=== PATIENT | female | born 1930 | race Two or more races ===

== ENCOUNTER 2018-09-17 05:27 | Inpatient (IN) | payer OTHER ==
[~2018-09-17] VITALS: Ht 152.4 cm; Wt 73.2 kg
[2018-09-17] VITALS (8 sets, daily range): BP systolic 131–153; BP diastolic 61–71; PULSE 68–83; RESP 18
[~2018-09-17 05:27] MED LIST: CALC-143 PO; CHOL2400 MC; GABA300C16 PO; GLIP5TAB13 PO; HYDR12.53 PO; LISI10TA2 PO; MECL25TA2 PO; METF-849 PO; MTF1000T PO; SIMV5TAB14 PO
--- NOTE | 2018-09-17 11:19 | HP ---
Date/Time of Note Date/Time of Note DATE: 09/17/18 TIME: 11:12 Assessment/Plan VTE Prophylaxis SCD applied (from Nsg): Yes Pharmacological prophylaxis: NA/contraindicated Pharm contraindication: low risk/ambulating Lines/Catheters IV Catheter Type (from Nrsg): Saline Lock Assessment/Plan Assessment/Plan 88 yo woman with HTN and NIDDM presents with cough. #Cough - Will repeat 2-vew CXR - Cont empiric CTX+azithro - Patient reports she got the flu vaccine. - Watch overnight, likely D/C in AM. #HTN - Patient reports noncompliance with home antihypertensives. - Currently normotensive, will hold. #NIDDM - Insulin sliding scale. DVT: SCDs GI: None HPI/ROS Admit Date/Time Admit Date/Time Sep 17, 2018 at 09:20 Hx of Present Illness Ms. Gauthier is an 88 yo woman who presents with fever and cough. She reports 2 days of cough productive of white sputum. Subjective fever at home, but didn't measure it. Also mild headache on and off. She has HTN and NIDDM. She occasionally takes her blood pressure at home and only takes anti- hypertensives if it is high, which is rarely. She presented to the ED at [facility], vitals normal, breathing comfortably on room air. CXR showed a little retrocardiac opacity. WBC 10.7, otherwise labs normal. Lactate 2.2. She was started on ceftriaxone and azithromycin and admitted here with "severe sepsis". ROS Full 12 point review of systems, negative except per HPI. PMH/Family/Social Past Medical History NIDDM HTN Medications Current Medications Gabapentin (Neurontin) 300 mg TID PO ; Start 09/17/18 at 13:00 Meclizine HCl (Antivert) 25 mg TID PO ; Start 09/17/18 at 13:00 Miscellaneous Information 5 mg QHS PO ; Start 09/17/18 at 21:00; Status UNV Coded Allergies: No Known Allergy (Unverified , 05/31/16) Past Surgical History Hysterectomy Social History Lives at home with daughter. Alcohol Use: none Smoking Status: Never smoker Drug Use: none Exam/Review of Systems Vital Signs Vitals Vital Signs Date Temp Pulse Resp B/P (MAP) Pulse Ox O2 O2 Flow FiO2 Time Delivery Rate 09/17/18 Nasal 2.0 10:56 Cannula 09/17/18 78 09:34 09/17/18 98.5 18 143/71 98 09:22 (95) Exam Exam Gen: Frail appearing elderly woman in no acute distress. Eyes: PERRL, no icterus HEENT: Moist mucous membranes clear oropharynx Neck: No lymphadenopathy Card: Regular rate and rhythm, no murmurs Pulm: Clear to auscultation bilaterally Abd: Soft, nontender, nondistended. Ext: No cyanosis/clubbing/edema Skin: warm, dry, well perfused. TOSIN JOYNER MD Sep 17, 2018 11:19
[2018-09-17] MEDS ORDERED: ACETAMINOPHEN 325 MG TAB PO PRN (11:30)
[2018-09-17] MEDS ORDERED: NACL 0.9% 3 ML SYG IV SCH (11:30)
[2018-09-17] MEDS ORDERED: ONDANSETRON 4 MG INJ IV PRN (11:30)
[2018-09-17] MEDS: AZITHROMYCIN 250 MG TAB PO SCH (11:49)
[2018-09-17] MEDS: CEFTRIAXONE 1 GM/50 ML (PMX) 50 ML IVPB SCH (11:49)
[2018-09-17] MEDS: INSULIN ASPART [NOVOLOG] 3 ML PEN SC SCH ×3 (12:03→20:48)
[2018-09-17] MEDS: GABAPENTIN 300 MG CAP PO SCH ×2 (12:44→20:28)
[2018-09-17] MEDS: MECLIZINE 25 MG TAB PO SCH ×2 (12:44→20:28)
[2018-09-17] MEDS ORDERED: POTASSIUM CHLORIDE 20 MEQ POWDER FOR ORAL SOLN PO ONE (15:30)
[2018-09-17] MEDS ORDERED: MAGNESIUM SULFATE 2 GM/50 ML 50 ML IVPB ONE (15:30)
[2018-09-17] MEDS ORDERED: NON-FORMULARY/PATIENT OWN MED (Simvastatin* 5 MG) PO SCH (21:00)
[2018-09-17] MEDS ORDERED: ATORVASTATIN 10 MG TAB PO SCH (21:00)
[2018-09-18] VITALS (8 sets, daily range): BP systolic 109–155; BP diastolic 52–78; PULSE 65–91; RESP 18
[2018-09-18] MEDS ORDERED: ACCU-CHEK XX SCH (02:00)
[2018-09-18] MEDS: INSULIN ASPART [NOVOLOG] 3 ML PEN SC SCH ×2 (08:24→11:15)
[2018-09-18] MEDS: AZITHROMYCIN 250 MG TAB PO SCH (08:25)
[2018-09-18] MEDS: MECLIZINE 25 MG TAB PO SCH ×2 (08:25→13:00)
[2018-09-18] MEDS: GABAPENTIN 300 MG CAP PO SCH ×2 (08:25→13:00)
[2018-09-18] MEDS: CEFTRIAXONE 1 GM/50 ML (PMX) 50 ML IVPB SCH (11:12)
[2018-09-18] MEDS ORDERED: GUAI473L22 PO (11:20)
[2018-09-18] MEDS ORDERED: AZIT250T13 PO (11:20)
--- NOTE | 2018-09-18 11:21 | PDOCDIS ---
Discharge Instructions DIAGNOSIS Discharge Diagnosis Atypical pneumonia CONDITION [id number] Patient Condition: [id number] Good HOME CARE INSTRUCTIONS: [id number] Special Diet: [id number] Carbohydrate-controlled ACTIVITY: [id number] Activity Restrictions: [id number] No Restrictions FOLLOW UP/APPOINTMENTS Follow-up Plan 1. Take all medication as prescribed. Finish a 4 day course of azithromycin. 2. You can take [id number] advil for knee pain. 3. See your primary care doctor in 1-2 weeks. TOSIN JOYNER MD Sep 18, 2018 11:21
--- NOTE | 2018-09-18 17:23 | DS ---
Date/Time of Note Date/Time of Note DATE: 09/18/18 TIME: 17:21 Discharge Summary Admission/Discharge Info Admit Date/Time Sep 17, 2018 at 09:20 Discharge Date/Time Sep 18, 2018 at 14:15 Discharge Diagnosis Atypical pneumonia Patient Condition: Good Consults None Procedures None Hx of Present Illness Ms. Gauthier is an 88 yo woman who presents with fever and cough. She reports 2 days of cough productive of white sputum. Subjective fever at home, but didn't measure it. Also mild headache on and off. She has HTN and NIDDM. She occasionally takes her blood pressure at home and only takes anti- hypertensives if it is high, which is rarely. She presented to the ED at [place], vitals normal, breathing comfortably on room air. CXR showed a little retrocardiac opacity. WBC 10.7, otherwise labs normal. Lactate 2.2. She was started on ceftriaxone and azithromycin and admitted here with "severe sepsis". Hospital Course CXR was repeated which showed no consolidations or abnormalities. Labs remained unremarkable. She tolerated diet and ambulated without problems. Will discharge to finish course of azithromycin. Home Meds Active Scripts Guaifenesin-Codeine Phosphate* (Guaifenesin* AC Cough Syrup) 473 Ml Liquid, 10 ML PO Q4H PRN for COUGH, #1 BOTTLE Prov:TOSIN JOYNER MD 09/18/18 Azithromycin* (Azithromycin*) 250 Mg Tablet, 250 MG PO DAILY for 4 Days, #4 TAB Prov:TOSIN JOYNER MD 09/18/18 Meclizine Hcl* (Antivert*) 25 Mg Tablet, 25 MG PO TID for DIZZINESS, #14 TAB Prov:CHAITANYA COLE MD 04/26/15 Lisinopril* (Lisinopril*) 10 Mg Tablet, 10 MG PO DAILY, #30 TAB Prov:CHAITANYA COLE MD 04/26/15 Metformin* (Glucophage*) 500 Mg Tab, 500 MG PO BID, #30 TAB Prov:CHAITANYA COLE MD 04/26/15 Reported Medications Cholecalciferol (Vitamin D3) 2,400 Unit/1 Ml Liquid, 2400 UNIT 05/31/16 Simvastatin* (Simvastatin*) 5 Mg Tablet, 5 MG PO QHS, #30 TAB 05/31/16 Hydrochlorothiazide (Hydrochlorothiazide) 12.5 Mg Capsule, 12.5 MG PO DAILY, #30 CAP 05/31/16 Glipizide* (Glipizide*) 5 Mg Tablet, 5 MG PO BID, TAB 05/31/16 Gabapentin* (Gabapentin*) 300 Mg Capsule, 300 MG PO TID, #90 CAP 05/31/16 Calcium Citrate/Vitamin D (Citracal-Vitamin D 200 MG-250) 1 Each Tablet, 1 EACH PO BID, TAB 05/31/16 Metformin* (Glucophage*) 1,000 Mg Tablet, 1000 MG PO DAILY, TAB 04/26/15 Follow-up Plan 1. Take all medication as prescribed. Finish a 4 day course of azithromycin. 2. You can take [id number]-giq-dqwlnnd advil for knee pain. 3. See your primary care doctor in 1-2 weeks. Primary Care Provider [facility] Time spent on discharge: > 30 minutes Pending Labs Laboratory Tests Test 09/17/18 20:22 09/18/18 01:24 09/18/18 05:42 09/18/18 08:22 Bedside 225 176 247 Glucose mg/dL (70-220) mg/dL (70-220) mg/dL (70-220) White Blood 7.1 Count 10^3/ul (4.8-1 0.8) Red Blood 4.30 Count 10^6/ul (4.20- 5.40) Hemoglobin 12.4 g/dl (12.0-16. 0) Hematocrit 38.1 % (37.0-47.0) Mean 88.6 Corpuscular fl (82.0-101.0 Volume ) Mean 28.8 Corpuscular pg (29.0-33.0) Hemoglobin Mean 32.5 Corpuscular g/dl (32.0-37. Hemoglobin Conc 0) ent Red Cell 13.4 Distribution % (11.5-14.5) Width Platelet Count 216 10^3/UL (140-4 15) Mean Platelet 9.6 Volume fl (7.4-10.4) Immature 0.400 Granulocytes % % (0.001-0.429 ) Neutrophils % 52.9 % (39.0-77.0) Lymphocytes % 27.3 % (15.0-51.0) Monocytes % 13.1 % (0.0-11.0) Eosinophils % 6.0 % (0.0-7.0) Basophils % 0.3 % (0.0-2.0) Nucleated Red 0.0 Blood Cells % /100WBC (0.0-0 .0) Immature 0.030 Granulocytes # 10^3/ul (0.0-0 .031) Neutrophils # 3.8 10^3/ul (1.6-7 .5) Lymphocytes # 1.9 10^3/ul (0.8-2 .9) Monocytes # 0.9 10^3/ul (0.3-0 .9) Eosinophils # 0.4 10^3/ul (0.0-0 .5) Basophils # 0.0 10^3/ul (0.0-0 .1) Nucleated Red 0.0 Blood Cells # 10^3/ul (0.0-0 .0) Sodium Level 141 mmol/L (135-14 4) Potassium 4.3 Level mmol/L (3.5-5. 1) Chloride Level 103 mmol/L (97-110 ) Carbon Dioxide 28 Level mmol/L (21-31) Anion Gap 10 (5-13) Blood Urea 12 Nitrogen mg/dl (7-20) Creatinine 0.73 mg/dl (0.44-1. 00) Est Glomerular mL/min (>60) Filtrat Rate mL/min Glucose Level 192 mg/dl (70-220) Hemoglobin A1c 10.1 % (0-5.9) Calcium Level 8.5 mg/dl (8.4-10. 2) Phosphorus 3.5 Level mg/dl (2.5-4.9 ) Magnesium 2.4 Level mg/dl (1.7-2.5 ) Total 0.1 Bilirubin mg/dl (0.2-1.3 ) Direct 0.00 Bilirubin mg/dl (0.00-0. 20) Indirect 0.1 Bilirubin mg/dl (0-1.1) Aspartate Amino 31 Transf (AST/SGO IU/L (15-46) T) Alanine 21 Aminotransferas IU/L (13-69) e (ALT/SGPT) Alkaline 94 Phosphatase IU/L (42-121) Total Protein 6.7 g/dl (6.1-8.1) Albumin 3.3 g/dl (3.3-4.9) Globulin 3.40 g/dl (1.3-3.2) Albumin/Globuli 0.97 n Ratio Thyroid 3.900 Stimulating MIU/L (0.465-4 Hormone (TSH) .680) Test 09/18/18 11:10 Bedside 262 Glucose mg/dL (70-220) TOSIN JOYNER MD Sep 18, 2018 17:23
== END 2018-09-18 14:15 | disposition home or self-care (01) | DRG 195 ==
LOC: TEL 09:20
PROVIDERS: ADMIT Internal Medicine; ATTEND Internal Medicine
DX: J18.9 Pneumonia, unspecified organism (principal); I10 Essential (primary) hypertension; E11.9 Type 2 diabetes mellitus without complications; Z79.4 Long term (current) use of insulin
CPT/HCPCS: 71046; 80053; 82962; 83036; 83605; 83735; 84100; 84443; 85025; J0696; J1815; J3475